=== PATIENT | female | born 1940 | race African-American/Black ===

== ENCOUNTER 2021-09-10 09:17 | Emergency (ER) | payer MEDICARE ==
[~2021-09-10] VITALS: Ht 157.5 cm; Wt 61.8 kg
[~2021-09-10 09:17] MED LIST: Aspirin PO; CHOL10003 PO; Indapamide PO; KRIL1CAP7 PO; METF10007 PO; METH454P2 PO; MULT-208 PO
--- NOTE | 2021-09-10 09:53 | ED.ADGEN ---
Past Medical History Past Medical History: Arthritis, Diabetes-Type II, Hypertension, Stroke Past Surgical History: Cholecystectomy, Hysterectomy Smoking Status: Never Smoker Alcohol Use: Rarely Drug Use: None General Adult EDM: Chief Complaint: CHEST PAIN HPI: HPI: Patient is a 81 year old female coming in for left chest pain that she describes as sharp and constant. Says the pain is located beneath her left breast but does not radiate anywhere else. Says the pain woke her from sleep about 2 hours ago. Denies any cough or shortness of breath. Denies any recent illness. No GI complaints. Has a history of hypertension and diabetes, denies any cardiac history. Has not take anything for pain Review of Systems: Review of Systems: All other systems within normal limits except for as noted in the HPI Current Medications: Current Medications Medications (Trade) Dose Ordered Sig/Ana Start Time Stop Time Status Last Admin Dose Admin Aspirin (Aspirin Chewable) 324 mg 1X ONCE 09/10/21 10:00 09/10/21 10:01 DC 09/10/21 10:28 324 MG Info (CONTRAST GIVEN -- Rx MONITORING) 1 each PRN DAILY PRN 09/10/21 11:15 09/12/21 11:14 Iohexol (Omnipaque 350 Mg/ml) 90 ml 1X ONCE 09/10/21 11:00 09/10/21 11:02 DC 09/10/21 11:07 90 ML Allergies: Allergies: Allergies Coded Allergies Type Severity Reaction Last Updated Verified No Known Drug Allergies 06/20/14 No Physical Exam: PE: Constitutional: Well developed, well nourished, no acute distress, non-toxic appearance. [] HENT: Normocephalic, atraumatic, bilateral external ears normal, nose normal. [] Eyes: PERRLA, conjunctiva normal, no discharge. [] Neck: No rigidity, supple, no stridor. [] Cardiovascular: Regular rate and rhythm, brisk cap refill [] Lungs & Thorax: Non labored symmetric respirations, no tachypnea or respiratory distress [] Abdomen: Soft, nondistended. Skin: Warm, dry, no erythema, no rash. [] Back: Unremarkable Extremities: No deformities, range of motion grossly intact, no lower extremity edema [] Neurologic: Alert and oriented X 3, no focal deficits noted. [] Psychologic: Affect normal, judgement normal, mood normal. [] Current Patient Data: Labs: Laboratory Tests Test 09/10/21 09:30 09/10/21 11:55 White Blood Count 9.8 x10^3/uL (4.0-11.0) Red Blood Count 4.17 x10^6/uL (3.50-5.40) Hemoglobin 12.4 g/dL (12.0-15.5) Hematocrit 37.7 % (36.0-47.0) Mean Corpuscular Volume 90 fL (79-100) Mean Corpuscular Hemoglobin 30 pg (25-35) Mean Corpuscular Hemoglobin Concent 33 g/dL (31-37) Red Cell Distribution Width 14.0 % (11.5-14.5) Platelet Count 186 x10^3/uL (140-400) Neutrophils (%) (Auto) 72 % (31-73) Lymphocytes (%) (Auto) 21 % (24-48) L Monocytes (%) (Auto) 7 % (0-9) Eosinophils (%) (Auto) 1 % (0-3) Basophils (%) (Auto) 0 % (0-3) Neutrophils # (Auto) 7.0 x10^3/uL (1.8-7.7) Lymphocytes # (Auto) 2.0 x10^3/uL (1.0-4.8) Monocytes # (Auto) 0.6 x10^3/uL (0.0-1.1) Eosinophils # (Auto) 0.1 x10^3/uL (0.0-0.7) Basophils # (Auto) 0.0 x10^3/uL (0.0-0.2) D-Dimer (Fatou) 0.72 ug/mlFEU (0.00-0.50) H Sodium Level 137 mmol/L (136-145) Potassium Level 3.8 mmol/L (3.5-5.1) Chloride Level 102 mmol/L (98-107) Carbon Dioxide Level 24 mmol/L (21-32) Anion Gap 11 (6-14) Blood Urea Nitrogen 24 mg/dL (7-20) H Creatinine 1.1 mg/dL (0.6-1.0) H Estimated GFR (Cockcroft-Gault) 58.0 BUN/Creatinine Ratio 22 (6-20) H Glucose Level 237 mg/dL (70-99) H Calcium Level 9.3 mg/dL (8.5-10.1) Total Bilirubin 0.4 mg/dL (0.2-1.0) Aspartate Amino Transferase (AST) 17 U/L (15-37) Alanine Aminotransferase (ALT) 17 U/L (14-59) Alkaline Phosphatase 80 U/L (46-116) Troponin I High Sensitivity 38 ng/L (4-50) 35 ng/L (4-50) PT-Xfq-H-Type Natriuretic Peptide 111 pg/mL (0-449) Total Protein 7.7 g/dL (6.4-8.2) Albumin 3.3 g/dL (3.4-5.0) L Albumin/Globulin Ratio 0.8 (1.0-1.7) L Lipase 44 U/L (73-393) L Laboratory Tests 09/10/21 09:30 Laboratory Tests 09/10/21 09:30 Vital Signs: Vital Signs Date Time Temp Pulse Resp B/P (MAP) Pulse Ox O2 Delivery O2 Flow Rate FiO2 09/10/21 11:28 65 194/79 (117) 99 Room Air 09/10/21 09:33 98.0 20 98.0 EKG: EKG: Sinus rhythm, heart rate 60 beats minute, normal axis, upright T in V1 and inverted T wave in aVL [] Heart Score: C/O Chest Pain: Yes HEART Score for Chest Pain: HEART Score for Chest Pain Response (Comments) Value History Slighlty/Non-Suspicious 0 ECG Normal 0 Age > 65 2 Risk Factors 1 or 2 Risk Factors 1 Troponin < Normal Limit 0 Total 3 Risk Factors: Risk Factors: DM, Current or recent (<one month) smoker, HTN, HLP, family history of CAD, obesity. Risk Scores: Score 0 - 3: 2.5% MACE over next 6 weeks - Discharge Home Score 4 - 6: 20.3% MACE over next 6 weeks - Admit for Clinical Observation Score 7 - 10: 72.7% MACE over next 6 weeks - Early Invasive Strategies Radiology/Procedures: Radiology/Procedures: [facility] [address] [place], [place] [id number] IMAGING REPORT Signed PATIENT: JEFFERY SANTIAGO ACCOUNT: [id number] : 1940 LOCATION: ER AGE: 81 SEX: F EXAM STATUS: REG ER ORD. PHYSICIAN: THI CARSON MD REASON: chest pain PROCEDURE: CT ANGIOGRAPHY CHEST Exam Date: 09/10/2021 11:00 AM CTA CHEST Indication: Reason: chest pain / Spl. Instructions: omni 350 90ml / History: . TECHNIQUE: CT angiogram of the chest was performed following the administration of nonionic intravenous contrast for evaluation of pulmonary embolus. 3D MIPs were created and reviewed on an independent workstation to assist in diagnosis and clinical management. One or more of the following dose reduction techniques were utilized: *Automated exposure control (AEC) *Adjustment of mA and/or kV according to patient size *Use of iterative reconstruction technique *CT scan done according to ALARA, or ALARA/IMAGE GENTLY FINDINGS: There is adequate opacification of the pulmonary arteries. No central intravascular filling defects are appreciated. There is no evidence for central pulmonary embolus. The aorta is normal in caliber without evidence for dissection. Aortic calcifications are present. The heart is normal in size without pericardial effusion. The visualized thyroid gland is within normal limits. No lymphadenopathy is seen. The central airways are patent. There is no focal consolidation, pleural effusion or pneumothorax. Mild emphysematous changes are noted. Images of the upper abdomen demonstrate cholecystectomy clips. Degenerative changes are seen in the spine. IMPRESSION: No evidence for central pulmonary embolus. Electronically signed by: Amanda Mccauley MD (09/10/2021 11:38 AM) [id number] DICTATED and SIGNED BY: AMANDA MCCAULEY MD DATE: 09/10/21 [id number] 0 [] Course & Med Decision Making: Course & Med Decision Making Pertinent Labs and Imaging studies reviewed. (See chart for details) Work-up unremarkable, no evidence of cardiopulmonary pathology. High sensitive troponin negative x2 [] Dragon Disclaimer: Dragon Disclaimer: This electronic medical record was generated, in whole or in part, using a voice recognition dictation system. Departure Departure Impression: Primary Impression: Chest pain Disposition: HOME / SELF CARE / HOMELESS Condition: STABLE Referrals: WILI RIVAS MD (PCP) Patient Instructions: Chest Pain (Nonspecific) THI CARSON MD Sep 10, 2021 09:53
[2021-09-10] MEDS ORDERED: ASPIRIN CHEWABLE 81 MG TABLET. PO ONE (10:00)
[2021-09-10 10:10] LABS: CALCIUM 9.3 mg/dL (8.5-10.1); CREATININE 1.1 mg/dL (0.6-1.0); POTASSIUM 3.8 mmol/L (3.5-5.1)
[2021-09-10 10:14] LABS: BASO % 0 % (0-3); EOS # 0.1 x10^3/uL (0.0-0.7); EOS % 1 % (0-3); HEMATOCRIT 37.7 % (36.0-47.0); HEMOGLOBIN 12.4 g/dL (12.0-15.5); LYMPH % 21 % (24-48); MEAN CORPUSCULAR HEMOGLOBIN 30 pg (25-35); MEAN CORPUSCULAR HGB CONC 33 g/dL (31-37); MEAN CORPUSCULAR VOLUME 90 fL (79-100); MONO # 0.6 x10^3/uL (0.0-1.1); MONO % 7 % (0-9); NEUT % 72 % (31-73); PLATELET COUNT 186 x10^3/uL (140-400); RED BLOOD COUNT 4.17 x10^6/uL (3.50-5.40); WHITE BLOOD COUNT 9.8 x10^3/uL (4.0-11.0)
[2021-09-10 10:16] LABS: ALBUMIN 3.3 g/dL (3.4-5.0); ALBUMIN/GLOBULIN RATIO 0.8 (1.0-1.7); TOTAL BILIRUBIN 0.4 mg/dL (0.2-1.0); TOTAL PROTEIN 7.7 g/dL (6.4-8.2)
--- NOTE | 2021-09-10 10:18 | RAD ---
XR CHEST 1V History: Reason: left chest pain / Spl. Instructions: / History: Comparison: None. Findings: No consolidation or pleural effusion. Normal heart size. No pneumothorax. Surgical clips right upper quadrant. Impression: 1. No acute cardiopulmonary process. Electronically signed by: Rajesh Wallace DO (09/10/2021 10:16 AM) [id number]
[2021-09-10] MEDS ORDERED: IOHEXOL 350 MG/ML 100 ML VIAL. IV ONE (11:00)
[2021-09-10] MEDS ORDERED: CONTRAST GIVEN. MC PRN (11:15)
--- NOTE | 2021-09-10 11:41 | RAD ---
Exam Date: 09/10/2021 11:00 AM CTA CHEST Indication: Reason: chest pain / Spl. Instructions: omni 350 90ml / History: . TECHNIQUE: CT angiogram of the chest was performed following the administration of nonionic intrave nous contrast for evaluation of pulmonary embolus. 3D MIPs were created and reviewed on an [employer] workstation to assist in diagnosis and clinical management. One or more of the following dose red uction techniques were utilized: *Automated exposure control (AEC) *Adjustment of mA and/or kV according to patient size *Use of iterative reconstruction technique *CT scan done according to ALARA, or ALARA/IMAGE GENTLY FINDINGS: There is adequate opacification of the pulmonary arteries. No central intravascular filling defects are appreciated. There is no evidence for central pulmonary embolus. The aorta is normal in caliber without evidence for dissection. Aortic calcifications are present. The heart is normal in size without pericardial effusion. The visualized thyroid gland is within normal limits. No lymphadenopathy is seen. The central airways are patent. There is no focal consolidation, pleural effusion or pneumothorax. Mild emphysematous changes are noted. Images of the upper abdomen demonstrate cholecystectomy clips. Degenerative changes are seen in the spine. IMPRESSION: No evidence for central pulmonary embolus. Electronically signed by: Guevara Mccauley MD (09/10/2021 11:38 AM) [id number]
[2021-09-10 12:28] VITALS: BP 165/72
--- NOTE | 2021-09-11 07:48 | EKG ---
[facility] [address] [place] [address] Test Date: 2021-09-10 Test Time: 09:45:15 Pat Name: JEFFERY SANTIAGO Department: Room: Gender: F Director Of Pharmacy: : 1940 Requested By: THI CARSON Order Number: [id number] Reading MD: Joon Grace MD Measurements Intervals Fate Rate: 61 P: 37 MS: 230 QRS: 9 QRSD: 84 T: 89 QT: 422 QTc: 431 Interpretive Statements SINUS RHYTHM PROLONGED MS INTERVAL NON-SPECIFIC ST/T CHANGES Electronically Signed On 09-12-2021 8:45:44 SHIP BOSS by Joon Grace MD
== END 2021-09-10 13:09 | disposition home or self-care (01) ==
LOC: ER 09:17
DX: R07.89 Other chest pain (principal); E11.9 Type 2 diabetes mellitus without complications; I10 Essential (primary) hypertension; Z86.73 Personal history of transient ischemic attack (TIA), and cerebral infarction without residual deficits
CPT/HCPCS: 36415; 71045; 71275; 80053; 83690; 83880; 84484; 85025; 85379; 93005; 99284; Q9967; 99285-25